=== PATIENT | female | born 1995 | race Caucasian/White ===

== ENCOUNTER → 2016-10-24 | Outpatient (CLI) | payer OTHER | LOC: COL.RAD 06:41 | DX: R11.2 Nausea with vomiting, unspecified (principal); K31.89 Other diseases of stomach and duodenum | CPT/HCPCS: A9541 ==

== ENCOUNTER → 2016-11-27 | Outpatient (CLI) | payer OTHER | LOC: COL.CARD 13:00 | DX: Z86.69 Personal history of other diseases of the nervous system and sense organs (principal) ==

== ENCOUNTER 2020-12-29 20:58 | Emergency (ER) | payer SELFPAY ==
[~2020-12-29] VITALS: Ht 167.6 cm; Wt 81.8 kg
[2020-12-29 21:03] VITALS: TEMP 98.1
[2020-12-29 21:25] LABS: MEAN CELL VOLUME 60 fl (80.0-100.0); MEAN CORPUSCULAR HGB CONC 28 g/dl (33.0-37.0); MEAN PLATELET VOLUME 10.2 fl (7.4-10.4); PLATELET COUNT 230 K/mm3 (130-400); RED BLOOD COUNT 4.84 M/mm3 (4.10-5.30); REDCELL DISTRIBUTION WIDTH-CV 19.2 % (11.5-14.5)
[2020-12-29 21:35] LABS: ALBUMIN 4.6 gm/dL (3.5-5.0); BILIRUBIN,TOTAL 0.6 mg/dL (0.0-1.0); C-REACTIVE PROTEIN 1.2 mg/dL (0.0-0.9); CREATININE, serum 0.93 (0.52-1.25); POTASSIUM 3.5 mmol/L (3.4-5.0); TOTAL PROTEIN 8.1 gm/dL (6.4-8.2)
[2020-12-29 21:44] LABS: HEMATOCRIT 28.9 % (37.0-47.0); HEMOGLOBIN 8.1 g/dl (12.5-16.0); MEAN CORPUSCULAR HEMOGLOBIN 17 pg (27.0-31.0)
[2020-12-29 21:58] LABS: BAND 17 % (0-10); LYMPHOCYTE 39 % (20.0-51.0); NEUTROPHILS 36 % (42.0-75.2)
[2020-12-29 21:59] LABS: PLATELET ESTIMATE NORMAL (NORMAL)
[2020-12-29 22:03] LABS: THYROID STIMULATING HORMONE 32.4 uIU/mL (0.465-4.680)
[2020-12-29 22:05] LABS: HELMET CELLS 1+; OVALOCYTES 2+; SCHISTOCYTES 2+; SPHEROCYTE 1+
[2020-12-29 22:13] LABS: COLLECTION METHOD CLEAN CATCH
[2020-12-29 22:21] LABS: BUDDING YEAST Present /hpf; MUCOUS Present /lpf; PH 5 (5-8); URINE APPEARANCE Cloudy; URINE BACTERIA Rare /hpf; URINE BILIRUBIN Negative (NEGATIVE); URINE BLOOD 3+ (NEGATIVE); URINE COLOR Amber; URINE GLUCOSE Negative (NEGATIVE); URINE KETONE Negative (NEGATIVE); URINE LEUKOCYTE ESTERASE 3+ (NEGATIVE); URINE NITRATE Negative (NEGATIVE); URINE PROTEIN(semi-quant) 2+ (NEGATIVE); URINE RBC >50 /hpf
[2020-12-29] MEDS ORDERED: ZOFRAN ODT4 MG PO (22:48)
[2020-12-29] MEDS ORDERED: CEFTIN500 MG PO (22:48)
[2020-12-29] MEDS ORDERED: SYNTHROID0.1 MG/TAB PO (23:14)
[2020-12-29 23:18] VITALS: BP 105/81; PULSE 82
[2020-12-30 08:26] LABS: PATHOLOGY DIFF REVIEW OK
== END 2020-12-29 23:18 | disposition home or self-care (01) ==
LOC: COL.ER 20:58
PROVIDERS: Nurse Practitioner
DX: E03.9 Hypothyroidism, unspecified (principal); N39.0 Urinary tract infection, site not specified; R42 Dizziness and giddiness
CPT/HCPCS: J0696; J1885; J2405; J7030